=== PATIENT | female | born 1950 | race Caucasian/White ===

== ENCOUNTER 2016-11-20 07:00 | Emergency (ER) | payer MEDICARE, OTHER ==
[~2016-11-20] VITALS: Ht 170.2 cm; Wt 86.3 kg
[2016-11-20 07:03] VITALS: BP 173/82; PULSE 88; RESP 16; TEMP 97.8; O2SAT 98
[2016-11-20 07:13] VITALS: BP 198/87; PULSE 87; RESP 16; O2SAT 96
[2016-11-20] MEDS ORDERED: COLY4000S PO (07:23)
--- NOTE | 2016-11-20 07:23 | PD ---
HPI Chief Complaint: GI Complaint Time Seen by Provider: 07:11 Travel History International Travel<30 days: No Contact w/Intl Traveler<30days: No Traveled to known affect area: No History of Present Illness HPI Patient is a pleasant 66-year-old female who presents the emergency department with complaint of constipation. Patient states that her diastolic was changed to metoprolol and hydrochlorothiazide approximately 2 weeks ago. Since she has been having lightheadedness and dizziness and had a brief syncopal episode 5 days ago. She fell, hitting her buttock. She has since stopped both of her antihypertensives and has felt markedly improved without recurrent symptoms. She has low back pain on the right side and was seen by her PCP for this. X- rays were obtained and negative. [place] that this was likely muscular. Her symptoms have been gradually improving. She has been taking frequent analgesics , NSAIDs. No opioids. In the interim she notes that she has had increasing constipation, hard stool. She is still passing gas. Patient has been using multiple bowel regimens at home without improvement. No nausea vomiting, abdominal pain or distention. PFSH Past Medical History Hx Anticoagulant Therapy: Yes (ASA) Cardiovascular Problems: Yes (HYPERTENSION) Past Surgical History Hysterectomy: Yes Social History Tobacco Use: No Allergies-Medications (Allergen,Severity, Reaction): Coded Allergies: No Known Allergies (Unverified , 11/20/16) Reported Meds & Prescriptions Reported Meds & Active Scripts Active Golytely 236 gm (Polyethylene Glycol/Electrolytes) 4,000 Ml Soln 4,000 Ml PO ONCE Reported Aspirin 81 (Aspirin) 81 Mg Tabdr 81 Mg PO DAILY Prilosec (Omeprazole) 20 Mg Cap 20 Mg PO DAILY Losartan (Losartan Potassium) 25 Mg Tab 12.5 Mg PO DAILY Review of Systems Except as stated in HPI: all other systems reviewed are Neg Physical Exam Narrative GENERAL: Well-appearing elderly female in no acute distress SKIN: Warm and dry. HEAD: Normocephalic. EYES:No scleral icterus. No injection or drainage. ENT: Mucous membranes pink and moist. NECK: Supple CARDIOVASCULAR: Regular rate and rhythm. No murmur appreciated. RESPIRATORY: No accessory muscle use. Clear to auscultation. Breath sounds equal bilaterally. GASTROINTESTINAL: Abdomen soft, non-tender, nondistended. MUSCULOSKELETAL: Normal gait. No midline tenderness to palpation of the thoracic or lumbar spine. Patient has right sided lumbar tenderness not made worse with palpation. No palpable spasm NEUROLOGICAL: Awake and alert. 5 out of 5 strength in the bilateral upper and lower extremities, DTRs intact. Normal speech. PSYCHIATRIC: Appropriate mood and affect; insight and judgment normal. Data Data Last Documented VS Vital Signs Date Time Temp Pulse Resp B/P Pulse Ox O2 Delivery O2 Flow Rate FiO2 11/20/16 07:13 87 16 198/87 96 Room Air 11/20/16 07:03 97.8 MDM Medical Decision Making Medical Screen Exam Complete: Yes Emergency Medical Condition: Yes Medical Record Reviewed: Yes Differential Diagnosis 66-year-old female with a here for syncopal episode 5 days ago and constipation. Her syncopal episode seems to be attributable to orthostatic hypotension for medication adjustment. She in the interim has stopped these medications and feels markedly improved. She is hypertensive here, but can follow-up with her outpatient PCP for further blood pressure management. With regards to her constipation, I think that this is incidental. She has not been taking any opioids which would have made her constipated after her low back pain and fall. She does not have any midline tenderness to palpation of the spine and I do not think that there is any sort of fracture. This is clearly muscular. She does not have any symptoms of cauda equina syndrome. She is able to pass flatus and not had any abdominal pain, nausea vomiting or distention to suggest obstruction. Narrative Course Had a outpatient bowel regimen including MiraLAX, Senokot, enema and has not had relief we'll discharge to home with GoLYTELY and outpatient PCP follow-up for blood pressure management. Diagnosis Primary Impression: Constipation Qualified Code: K59.00 - Constipation, unspecified constipation type Additional Impression: Orthostatic syncope Referrals: Primary Care Physician 1 day Patient Instructions: Constipation (ED), General Instructions, Syncope (ED) Additional Instructions: GoLYTELY as prescribed for constipation. Remember, you do not need to take all of this, but rather enough to get one to 2 good bowel movements. Follow-up with primary care provider tomorrow for management of blood pressure. Return to the emergency department for the warning signs discussed. Med/Other Pt SpecificInfo: Prescription(s) given Scripts Peg-Electrolytes (Golytely 236 gm)4,000 Ml Soln4,000 Ml PO ONCE #1 CONTAINER Ref 0 Prov:Summer Watson MD 11/20/16 Disposition: 01 DISCHARGE HOME Condition: Stable Summer Watson MD Nov 20, 2016 07:23
[2016-11-20] MEDS ORDERED: PRIL20CA9 PO (07:24)
[2016-11-20] MEDS ORDERED: LOSA25TA PO (07:24)
[2016-11-20] MEDS ORDERED: ASPI-110 PO (07:24)
== END 2016-11-20 07:44 | disposition home or self-care (01) ==
LOC: NEPC 07:00
DX: K59.00 Constipation, unspecified (principal); R55 Syncope and collapse; M54.5 Low back pain; I10 Essential (primary) hypertension
CPT/HCPCS: 99283

== ENCOUNTER 2017-11-22 09:10 | Emergency (ER) | payer MEDICARE, OTHER ==
[~2017-11-22] VITALS: Ht 170.2 cm; Wt 100.1 kg
[~2017-11-22 09:10] MED LIST: ASPI1TAB57 PO; COLY4000S PO; LOSA25TA PO; PRIL20CA9 PO
[2017-11-22 09:17] VITALS: BP 174/83; PULSE 89; RESP 16; TEMP 98.8; O2SAT 97
[2017-11-22] MEDS ORDERED: LOSA25TA PO (09:28)
[2017-11-22] MEDS ORDERED: ASPI-516 CHEW (09:28)
[2017-11-22] MEDS ORDERED: OMEP20TA93 PO (09:28)
[2017-11-22] MEDS ORDERED: HYDR25TA5 PO (09:28)
--- NOTE | 2017-11-22 09:37 | PD ---
HPI Chief Complaint: left shoulder pain Time Seen by Provider: 09:33 Travel History International Travel<30 days: Yes Contact w/Intl Traveler<30days: Yes Name of Country Traveled to: [place] Traveled to known affect area: No History of Present Illness HPI This 67-year-old female is complaining of pain in her left shoulder. She was chasing after a dog today. She bent over to pick it up and fell forward. She scraped both of her knees and injured her left shoulder. She did not hit her head. She was able to get off the floor on her own. She has had ongoing pain in the left shoulder. She scraped her left knee but has no trouble walking on it. She also has abrasions on both of her hands. PFSH Past Medical History Hx Anticoagulant Therapy: Yes (ASA 81MG DAILY) Cardiovascular Problems: Yes (HYPERTENSION) Diminished Hearing: No Hypertension: Yes Tetanus Vaccination: Unknown ?: Not Past Surgical History Appendectomy: Yes Hysterectomy: Yes Social History Alcohol Use: Yes (WINE OCCASIONALLY) Tobacco Use: No Substance Use: No Allergies-Medications (Allergen,Severity, Reaction): Coded Allergies: No Known Allergies (Unverified Adverse Reaction, Unknown, 11/22/17) Reported Meds & Prescriptions Reported Meds & Active Scripts Active Reported Hydrochlorothiazide 25 Mg Tab 25 Mg PO DAILY Aspirin 81 Mg Chew 81 Mg CHEW DAILY Losartan (Losartan Potassium) 25 Mg Tab 25 Mg PO DAILY Omeprazole 20 Mg Tab 20 Mg PO DAILY Review of Systems Except as stated in HPI: all other systems reviewed are Neg General / Constitutional: No: Fever, Chills HENT: No: Headaches, Vertigo, Lightheadedness Cardiovascular: No: Chest Pain or Discomfort Musculoskeletal: Positive: Myalgias, Pain Psychiatric: No: Anxiety Hematologic/Lymphatic: No: Easy Bruising Physical Exam Narrative GENERAL: Well-developed female SKIN: Focused skin assessment warm/dry. HEAD: Atraumatic. Normocephalic. EYES: Pupils equal and round. No scleral icterus. No injection or drainage. ENT: No nasal bleeding or discharge. Mucous membranes pink and moist. NECK: Trachea midline. No JVD. CARDIOVASCULAR: Regular rate and rhythm. No murmur appreciated. RESPIRATORY: No accessory muscle use. Clear to auscultation. Breath sounds equal bilaterally. GASTROINTESTINAL: Abdomen soft, non-tender, nondistended. Hepatic and splenic margins not palpable. MUSCULOSKELETAL: No obvious deformities. No clubbing. No cyanosis. No edema. He is unable to move the left shoulder. There is tenderness over the proximal humerus. There is no deformity distal pulses are intact. There is abrasions on the left knee and both hands. She has full range of motion of the hands NEUROLOGICAL: Awake and alert. No obvious cranial nerve deficits. Motor grossly within normal limits. Normal speech. PSYCHIATRIC: Appropriate mood and affect; insight and judgment normal. Data Data Last Documented VS Vital Signs Date Time Temp Pulse Resp B/P (MAP) Pulse Ox O2 Delivery O2 Flow Rate FiO2 11/22/17 09:17 98.8 89 16 174/83 (113) 97 Orders Orders Shoulder, Complete (>2vws) (11/22/17 09:33) Tetanus/Diphtheria Tox Adult (Tetanus/Di (11/22/17 09:45) Wound Care (11/22/17 09:37) Support Splint (11/22/17 10:16) MDM Medical Decision Making Medical Screen Exam Complete: Yes Emergency Medical Condition: Yes Medical Record Reviewed: Yes Differential Diagnosis Differential includes dislocation, contusion, fracture Narrative Course X-ray shows a nondisplaced fracture of the greater tuberosity of the left humerus Diagnosis Primary Impression: Fracture of left shoulder Referrals: Freddie Damian MD Additional Instructions: Apply ice, use sling, call for orthopedic follow-up Disposition: 01 DISCHARGE HOME Condition: Stable Jose Tavera MD Nov 22, 2017 09:37
[2017-11-22] MEDS ORDERED: TETANUS/DIPHTHERIA TOXOID ADULT 0.5 ML VIAL IM ONE (09:45)
--- NOTE | 2017-11-22 10:19 | RADRPT ---
EXAM DATE/TIME: 11/22/2017 10:04 [facility] COMPARISON: No previous studies available for comparison. INDICATIONS : Left shoulder pain after falling today. MEDICAL HISTORY : Hypertension. SURGICAL HISTORY : Appendectomy. Hysterectomy. ENCOUNTER: Initial ACUITY: 1 day PAIN SCORE: 8/10 LOCATION: Left shoulder FINDINGS: The examination demonstrates a nondisplaced fracture involving the greater tuberosity of the left hum erus. The remainder the osseous structures of the left shoulder are intact. There are degenerative ch anges within the a.c. joint. The visualized pulmonary parenchyma is clear. CONCLUSION: There is a nondisplaced fracture which involves the greater tuberosity of the left humerus. Kirk Smith MD on November 22, 2017 at 10:16 Board Certified Radiologist. This report was verified electronically.
== END 2017-11-22 10:34 | disposition home or self-care (01) ==
LOC: PHED 09:10
DX: S42.92XA Fracture of left shoulder girdle, part unspecified, initial encounter for closed fracture (principal); I10 Essential (primary) hypertension; Z23 Encounter for immunization; W19.XXXA Unspecified fall, initial encounter; Z79.82 Long term (current) use of aspirin
CPT/HCPCS: 73030; 90471; 90714